=== PATIENT | female | born 1995 | race Two or more races ===

== ENCOUNTER 2019-02-23 21:08 | Emergency (ER) | payer MEDICAID ==
[~2019-02-23] VITALS: Ht 165.1 cm; Wt 72.6 kg
[2019-02-23 21:15] VITALS: BP 124/81
--- NOTE | 2019-02-23 21:15 | Emergency Room Report ---
History of Present Illness General Chief Complaint: Altered Level of Consciousness Source: EMS (Allan Rodríguez MD) Present Illness HPI 35-year-old female unknown medical history just prior to arrival [place], patient required 5 mg of Versed by EMS to sedate her, currently sleeping, unknown if she was under the influence, patient presents for evaluation History is limited secondary to patient's altered mental status (Allan Rodríguez MD) Allergies: Coded Allergies: No Known Allergies (Unverified , 02/24/19) Patient History Limited by: medical condition - Altered mental status Past Medical History: see triage record Last Menstrual Period: UNK Reviewed Nursing Documentation: PMH: Agreed; PSxH: Agreed (Allan Rodríguez MD) Nursing Documentation-PMH Past Medical History Deferred: Patient Unconscious Past Medical History: Deferred (Allan Rodríguez MD) Review of Systems All Other Systems: limited - Altered mental status (Allan Rodríguez MD) Physical Exam Vital Signs Date Time Temp Pulse Resp B/P (MAP) Pulse Ox O2 Delivery O2 Flow Rate FiO2 02/23/19 21:03 98.4 64 12 130/82 (98) 99 Room Air Sp02 EP Interpretation: reviewed, normal General Appearance: no apparent distress, other - sleeping Head: normocephalic, atraumatic Eyes: bilateral eye PERRL, bilateral eye EOMI ENT: uvula midline, moist mucus membranes Neck: supple, thyroid normal, supple/symm/no masses Respiratory: lungs clear, no respiratory distress, no retraction, no accessory muscle use Cardiovascular #1: normal peripheral pulses, regular rate, rhythm, no edema, no gallop, no murmur Gastrointestinal: non tender, soft, no guarding, no rebound Musculoskeletal: normal inspection Neurologic: responsive, other - moving all 4 extremities Skin: no rash, warm/dry (Allan Rodríguez MD) Medical Decision Making Diagnostic Impression: Primary Impression: Altered level of consciousness ER Course 35-year-old female presents with acute intoxication possible polysubstance use versus infection versus electrolyte abnormality Patient shows multiple substances amphetamines, marijuana Reevaluation at 5:48 AM, patient is still sleepy Patient will be observed pending sobriety Patient will be signed out to Dr. Tse Laboratory Tests Test 02/23/19 21:35 02/24/19 05:00 White Blood Count 11.0 K/UL (4.8-10.8) H Red Blood Count 4.09 M/UL (4.20-5.40) L Hemoglobin 12.4 G/DL (12.0-16.0) Hematocrit 34.9 % (37.0-47.0) L Mean Corpuscular Volume 85 FL (80-99) Mean Corpuscular Hemoglobin 30.3 PG (27.0-31.0) Mean Corpuscular Hemoglobin Concent 35.5 G/DL (32.0-36.0) Red Cell Distribution Width 11.5 % (11.6-14.8) L Platelet Count 236 K/UL (150-450) Mean Platelet Volume 6.5 FL (6.5-10.1) Neutrophils (%) (Auto) 60.8 % (45.0-75.0) Lymphocytes (%) (Auto) 23.4 % (20.0-45.0) Monocytes (%) (Auto) 13.9 % (1.0-10.0) H Eosinophils (%) (Auto) 0.8 % (0.0-3.0) Basophils (%) (Auto) 1.2 % (0.0-2.0) Sodium Level 140 MMOL/L (136-145) Potassium Level 3.3 MMOL/L (3.5-5.1) L Chloride Level 105 MMOL/L (98-107) Carbon Dioxide Level 26 MMOL/L (21-32) Anion Gap 9 mmol/L (5-15) Blood Urea Nitrogen 28 mg/dL (7-18) H Creatinine 0.9 MG/DL (0.55-1.30) Estimate Glomerular Filtration Rate > 60 mL/min (>60) Glucose Level 97 MG/DL (74-106) Calcium Level 9.1 MG/DL (8.5-10.1) Total Bilirubin 1.1 MG/DL (0.2-1.0) H Direct Bilirubin 0.2 MG/DL (0.0-0.3) Aspartate Amino Transferase (AST) 50 U/L (15-37) H Alanine Aminotransferase (ALT) 46 U/L (12-78) Alkaline Phosphatase 63 U/L (46-116) Total Protein 8.0 G/DL (6.4-8.2) Albumin 4.1 G/DL (3.4-5.0) Globulin 3.9 g/dL Albumin/Globulin Ratio 1.1 (1.0-2.7) Salicylates Level 0.3 ug/mL (2.8-20) L Acetaminophen Level < 2 MCG/ML (10-30) L Serum Alcohol < 3 mg/dL Urine HCG, Qualitative Negative (NEGATIVE) Urine Opiates Screen Negative (NEGATIVE) Urine Barbiturates Screen Negative (NEGATIVE) Phencyclidine (PCP) Screen Negative (NEGATIVE) Urine Amphetamines Screen Positive (NEGATIVE) H Urine Benzodiazepines Screen Positive (NEGATIVE) H Urine Cocaine Screen Negative (NEGATIVE) Urine Marijuana (THC) Screen Positive (NEGATIVE) H (Allan Rodríguez MD) EKG Diagnostic Results EKG Time: 22:22 EP Interpretation: NSR, rate 85, QTc 506, no acute ST elevations, normal axis (Allan Rodríguez MD) Rhythm Strip Diag. Results Rhythm Strip Time: 03:14 EP Interpretation: yes Rate: 84 Rhythm: NSR, no PVC's, no ectopy (Allan Rodríguez MD) CT/MRI/US Diagnostic Results CT/MRI/US Diagnostic Results : Impression Preliminary Findings Only See Final Report For Complete Findings CT HEAD Without Contrast: Brain: No hemorrhage, hydrocephalus, mass effect, or herniation. Bones: No acute calvarial fracture. Radiologist: Anh Bartholomew MD Study ready at 23:15 and initial results transmitted at 23:20 (Allan Rodríguez MD) Last Vital Signs Date Time Temp Pulse Resp B/P (MAP) Pulse Ox O2 Delivery O2 Flow Rate FiO2 02/23/19 21:03 98.4 64 12 130/82 (98) 99 Room Air (Allan Rodríguez MD) Reevaluation Time: 14:49 Status: improved Reevaluation Impression Patient was allowed to metabolize in the emergency department for almost [address] shows no evidence of injury, labs largely within normal limits beside testing positive for amphetamines, benzodiazepines and THC. She did receive a large dose of Haldol and benzodiazepines on initial arrival and now is metabolized. She is awake, ambulating with a steady gait, has no recollection of the events bring her to the emergency department. She is stable and appropriate for outpatient follow-up. Mental health and substance abuse contact numbers have been provided in her discharge paperwork. Encouraged her to follow-up as an outpatient or return to the emergency department if she has any new or worsening symptoms. (Monty Tse MD) Disposition: HOME, SELF-CARE Condition: Stable Scripts Unable to Obtain Active Prescriptions or Reported Meds Referrals: [facility] Patient Instructions: Altered Mental Status, Stimulant Use Disorder- Amphetamines Additional Instructions: The patient was provided with discharge instructions, notified to follow-up with a primary care doctor and or specialist in the next 24-48 hours, and to return to the ED if they have worsening of their symptoms. Please note that this report is being documented using [employer] technology. This can lead to erroneous entry secondary to incorrect interpretation by the dictating instrument. Allan Rodríguez MD Feb 23, 2019 21:15 Monty Tse MD Feb 24, 2019 14:51
--- NOTE | 2019-02-23 21:30 | NUR ---
ED Nurse Note: Recieved pt on gurney from streets, brought in by police and ambulance, tp [place] running [place], pt is awake and makes non-comprehensible sounds, no sob or labored breathing, pt is dirty and discheveled, unable to retrieve any info, pt gowned and placed on cardiac monitoring, iv line placed and labs drawn, will resume care as ordered ad closely monitor.
[2019-02-23 22:01] LABS: BASOPHILS % (AUTO) 1.2 % (0.0-2.0); EOSINOPHILS % (AUTO) 0.8 % (0.0-3.0); HEMATOCRIT 34.9 % (37.0-47.0); HEMOGLOBIN 12.4 G/DL (12.0-16.0); LYMPHOCYTES % (AUTO) 23.4 % (20.0-45.0); MEAN CORPUSCULAR VOLUME 85 FL (80-99); MONOCYTES % (AUTO) 13.9 % (1.0-10.0); NEUTROPHILS % (AUTO) 60.8 % (45.0-75.0); PLATELET COUNT 236 K/UL (150-450); RED BLOOD COUNT 4.09 M/UL (4.20-5.40); RED CELL DISTRIBUTION WIDTH 11.5 % (11.6-14.8)
[2019-02-23 22:12] LABS: ANION GAP 9 mmol/L (5-15); BLOOD UREA NITROGEN 28 mg/dL (7-18); CALCIUM 9.1 MG/DL (8.5-10.1); CARBON DIOXIDE 26 MMOL/L (21-32); CHLORIDE 105 MMOL/L (98-107); CREATININE 0.9 MG/DL (0.55-1.30); POTASSIUM 3.3 MMOL/L (3.5-5.1); SODIUM 140 MMOL/L (136-145)
[2019-02-23 22:22] LABS: ALANINE AMINOTRANSFERASE 46 U/L (12-78); ALBUMIN 4.1 G/DL (3.4-5.0); ALBUMIN/GLOBULIN RATIO 1.1 (1.0-2.7); ALKALINE PHOSPHATASE 63 U/L (46-116); ASPARTATE AMINO TRANSFERASE 50 U/L (15-37); BILIRUBIN,TOTAL 1.1 MG/DL (0.2-1.0)
[2019-02-23 22:25] LABS: BILIRUBIN,DIRECT 0.2 MG/DL (0.0-0.3)
--- NOTE | 2019-02-23 23:22 | Diagnostic Imaging Report ---
Indications: Altered mental status Technique: Spiral acquisitions obtained through the brain. Angled axial and coronal 5 x 5 mm slices were reconstructed. Total dose length product 3005.14 mGycm. CTDI vol(s) 70.38,70.38,70.38 mGy. Dose reduction achieved using automated exposure control Comparison: None. Findings: No acute intracranial hemorrhage or edema, mass effect, nor midline shift. There is slight image degradation due to motion artifact, despite multiple repeat acquisitions. There is a right maxillary sinus polyp versus mucous retention cyst. The visualized orbits are unremarkable. The mastoids are clear. The calvarium is intact. Impression: Somewhat limited exam, as described Negative for acute intracranial bleed or mass effect This agrees with the preliminary interpretation provided overnight by [facility] service. The CT scanner at [facility] is accredited by the [employer] and the scans are performed using protocols designed to limit radiation exposure to as low as reasonably achievable to attain images of sufficient resolution adequate for diagnostic evaluation.
--- NOTE | 2019-02-23 23:30 | NUR ---
ED Nurse Note: patient sleeping in bed with nad. vss. respirations even and unlabored.
[2019-02-23 23:39] VITALS: BP 123/61
[2019-02-24] MEDS ORDERED: Haloperidol 5mg/ml Inj IM ONE (00:45)
[2019-02-24] MEDS ORDERED: LORazepam Inj 2mg/ml 1ml IM ONE (00:45)
[2019-02-24] MEDS ORDERED: DiphenhydrAMINE 50mg/ml Inj IM ONE (00:45)
--- NOTE | 2019-02-24 03:30 | NUR ---
ED Nurse Note: Recieved report from eb Palmer laying in bed calmly, eye closed, no signs of distress. VSS, will continue to monitor
--- NOTE | 2019-02-24 05:17 | NUR ---
ED Nurse Note: A second urine sample retrieved, pt tolerated well. Will continue to monitor
[2019-02-24] MEDS ORDERED: Ammonia Inhalant 0.33mL 1 Amp INH ONE ×2 (05:51→06:00)
[2019-02-24] MEDS ORDERED: LR 1000ml 1,000 ML IV ONE ×2 (06:00)
[2019-02-24 07:20] VITALS: BP 123/57
--- NOTE | 2019-02-24 07:20 | NUR ---
ED Nurse Note: reports received. pt lying in bed with eye closed. no facial grimacing or moaning noted. redness noted on hairline and bruised noted on right eye. on satellite project site monitor. pt arousable by light pain but lethargic. will reassess neuro when she wake up more. respirations even and non-labored noted. will wait for the further order.
--- NOTE | 2019-02-24 07:22 | NUR ---
HAND-OFF: Report given to Adriana.
[2019-02-24 09:00] VITALS: BP 121/60
--- NOTE | 2019-02-24 10:11 | NUR ---
ED Nurse Note: pt lying in bed with eye closed. still arousable with pain only. will wait until pt awake.
--- NOTE | 2019-02-24 12:44 | NUR ---
ED Nurse Note: pt fully awake, AAO x4. able to provide name, address, SSN. ambulatory with steady gait to restroom. sandwitches and soda provide. will wait for discharge paper.
[2019-02-24 12:45] VITALS: BP 111/70
--- NOTE | 2019-02-24 13:07 | NUR ---
ED Nurse Note: pt appears to be sleey still. per Dr. Tes will wait 30 more mins and reassess the pt.
[2019-02-24 14:49] VITALS: BP 127/72
--- NOTE | 2019-02-24 14:50 | NUR ---
ER DISCHARGE NOTE: Patient is cleared to be discharged per ERMD, pt is aox4, on room air, with stable vital signs. pt was given dc instructions, pt was able to verbalize understanding, pt id band and iv site removed without complications. pt is able to ambulate with steady gait. cloths and shoes provide due to no belonging.
--- NOTE | 2019-02-24 18:49 | Cardiology Report ---
APPROVED REPORT EKG Measurement Heart [id number] Sinus rhythm with short NV Prolonged QT Abnormal ECG
== END 2019-02-24 14:51 | disposition home or self-care (01) ==
LOC: EDBD 21:08 → EMR 21:18 → EDBD 21:18 → EMR 02-24 14:51
DX: R40.4 Transient alteration of awareness (principal); F15.10 Other stimulant abuse, uncomplicated; F12.10 Cannabis abuse, uncomplicated; F13.10 Sedative, hypnotic or anxiolytic abuse, uncomplicated
CPT/HCPCS: 36415; 70450; 80053; 80196; 80307; 80329; 81025; 82248; 85025; 93005; 96360; 96361; 96372; J1200; J1630; Z7502; 99284

== ENCOUNTER 2019-02-25 06:36 | Emergency (ER) | payer MEDICAID ==
[~2019-02-25] VITALS: Ht 162.6 cm; Wt 63.5 kg
[2019-02-25 06:40] VITALS: BP 142/86
--- NOTE | 2019-02-25 06:42 | NUR ---
ER Nurse Note: Pt BIB[address] c/o unk psych problem. Per EMS, pt was found pacing back and forth on the street without shoes. Pt is not communicating with staff, poor historian. Pt has old ekg stickers on body. Pt is unkepmt, has a disheveled appearance, VSS at ambulance bay. Will continue to monitor.
--- NOTE | 2019-02-25 06:54 | Emergency Room Report ---
History of Present Illness General Chief Complaint: General Complaint Source: Patient, EMS Present Illness HPI Disclaimer: Please note that this report is being documented using [employer] technology. This can lead to erroneous entry secondary to incorrect interpretation by the dictating instrument. HPI: This is a 24-year-old female with no reported medical history presents via EMS for evaluation of bizarre behavior. Patient denies pain or any other symptoms right now but is a poor historian, avoidant gaze. EMS brought her in after she was found pacing back and forth in an alley not responding to their questions. There is no apparent trauma. The patient was in our emergency department for approximately 17 hours yesterday testing positive for amphetamines, THC benzodiazepines after being brought in for agitation. She currently denies SI/HI. She has no complaints but states she does not know where she is. She discretely falling asleep during our exam. Does not appear to be in any acute distress. PMH: Does not provide PSH: Does not provide Allergies: Does not provide Social Hx: Prior test positive for benzodiazepines, amphetamines, THC Allergies: Coded Allergies: No Known Allergies (Unverified , 02/24/19) Patient History Last Menstrual Period: unk Review of Systems All Other Systems: limited - Unable to obtain from patient Physical Exam Vital Signs Date Time Temp Pulse Resp B/P (MAP) Pulse Ox O2 Delivery O2 Flow Rate FiO2 02/25/19 06:32 97.9 86 16 142/86 (104) 98 Room Air General: Awake and alert, no acute distress HEENT: NC/AT. EOMI. Cardiovascular: RRR. S1 and S2 normal. No murmur appreciated Resp: Normal work of breathing. No cough, wheezing or crackles appreciated Abdomen: Abdomen is soft, nondistended. Nontender Skin: Intact. No abrasions, laceration or rash over the exposed skin MSK: Normal tone and bulk. Moving all extremities. No obvious deformity. Neuro: Awakens to voice. Answers some questions but uncooperative with others, avoidant gaze. Medical Decision Making Diagnostic Impression: Primary Impression: Adult general medical examination ER Course 24-year-old female brought in by EMS for evaluation of bizarre behavior after being found pacing back and forth in an alley. Patient does not appear to any acute distress, no evidence of trauma. She was seen in the emergency department yesterday for agitation secondary to amphetamine abuse. CT at that time was unremarkable as were the majority of labs. Will monitor in the emergency department, give something to eat and allowed to rest. If she becomes more cooperative more history can be obtained otherwise she does not appear to be in acute distress and denies SI/HI. If she remains well-appearing she may be discharged Reevaluation Time: 07:31 Last Vital Signs Date Time Temp Pulse Resp B/P (MAP) Pulse Ox O2 Delivery O2 Flow Rate FiO2 02/25/19 06:40 86 16 Room Air 02/25/19 06:40 97.9 142/86 98 Reevaluation Impression Patient is requesting discharge from the emergency department. She is ambulating without difficulty. She was given the name of mental health facilities in the area for she can follow-up voluntarily. She can return to the emergency department anytime with any new or worsening symptoms Disposition: HOME, SELF-CARE Condition: Stable Scripts Unable to Obtain Active Prescriptions or Reported Meds Monty Tse MD Feb 25, 2019 06:54
--- NOTE | 2019-02-25 07:18 | NUR ---
ED Nurse Note: Received patient walking back from bathroom to her room Tx2 with steady gait. pt answered her name and she knows she is at the hospital but orientation level is unclear due to being uncooperative to answer. calm but not fully cooperative to care. takes time and few times of repeat questions to communicate but no acute distress noted at this time. pt is in gown and went back to her bed and laying down to rest.
--- NOTE | 2019-02-25 07:30 | NUR ---
ED Nurse Note: sandwich and juice provided.
[2019-02-25 07:40] VITALS: BP 142/86
--- NOTE | 2019-02-25 07:40 | NUR ---
ELOPEMENT: Patient tried to run out the door with gown on. pt was convinced to change to her cloth and wait for the doctor. pt was redirected to the room. pt changed to her clothes but did not have shoes. shoes and jacket and foods were provided. pt refused to wait for the doctor and left. no visual acute distress noted. steady gait noted. pt refused to sign on AMA or mini cog. ERMD made aware. no IV line or ID band present.
== END 2019-02-25 08:00 | disposition left against medical advice (07) ==
LOC: EDBD 06:36 → EMR 07:44
DX: F91.9 Conduct disorder, unspecified (principal); F15.10 Other stimulant abuse, uncomplicated; F12.10 Cannabis abuse, uncomplicated; F13.10 Sedative, hypnotic or anxiolytic abuse, uncomplicated
CPT/HCPCS: 99282